=== PATIENT | male | born 1975 | race African-American/Black ===

== ENCOUNTER 2021-01-12 10:18 | Emergency (ER) | payer MEDICAID ==
[~2021-01-12] VITALS: Ht 172.7 cm; Wt 78.0 kg
[2021-01-12] MEDS ORDERED: CEFTRIAXONE SODIUM 500 MG/VIAL IM ONE (11:30)
[2021-01-12 12:15] LABS: CLARITY URINE CLEAR (CLEAR); COLOR URINE YELLOW (YELLOW); KETONES URINE NEGATIVE (NEGATIVE); LEUKOCYTE ESTERASE URINE 3+ (NEGATIVE); NITRITE URINE NEGATIVE (NEGATIVE); OCCULT BLOOD URINE 1+ (NEGATIVE); PROTEIN URINE NEGATIVE (NEGATIVE); SPECIFIC GRAVITY URINE 1.014 (1.005-1.030); UROBILINOGEN URINE 0.2 E.U./dL (0.2-1.0)
[2021-01-12] MEDS ORDERED: TRAMADOL 50MG TABLET PO ONE (12:30)
[2021-01-12] MEDS ORDERED: DOXY100C2 MT (13:18)
[2021-01-12] MEDS ORDERED: ACYC200C MT (13:18)
[2021-01-12 13:30] VITALS: BP 118/76
[2021-01-14 04:08] LABS: NEISSERIA GONORRHOEAE NAA Negative (Negative)
== END 2021-01-12 13:30 | disposition home or self-care (01) ==
LOC: ER 10:18
DX: N39.0 Urinary tract infection, site not specified (principal); B00.9 Herpesviral infection, unspecified; Z98.890 Other specified postprocedural states
CPT/HCPCS: 81003; 87077; 87086; 87491; 87591; 96372; 99283; J0696